=== PATIENT | female | born 1965 | race Caucasian/White ===

== ENCOUNTER 2019-11-28 23:45 | Emergency (ER) | payer OTHER, SELFPAY ==
--- NOTE | ~2019-11-28 | XR_ITS ---
EXAMINATION: XR shoulder LT min 2V, [id number] DATE: 11/29/2019 00:54 INDICATION: Left shoulder and lateral left rib pain post fall TECHNIQUE: 1. AP internally and externally rotated, AP oblique externally rotated, axillary and transscapular Y views of the affected shoulder were obtained. 2. PA view of the chest and 3 views of the left ribs were obtained. COMPARISON: None FINDINGS: Chest and ribs: No rib fractures identified. Mild elevation right hemidiaphragm. No focal airspace opacities, pulmona ry edema, pleural effusion or pneumothorax. Cholecystectomy clips in the right upper quadrant. Additi onal surgical clips in the epigastric region. Left shoulder: Nondisplaced fracture at the greater tuberosity. No other fractures identified. Glenohumeral joint is normal. Minimal left acromioclavicular osteoarthritis. Soft tissues are unremarkable. IMPRESSION: 1. Nondisplaced fracture of the left greater tuberosity. 2. No rib fractures or acute cardiopulmonary disease. Reviewed, dictated and finalized at location A. IMPRESSION: 1. Nondisplaced fracture of the left greater tuberosity. 2. No rib fractures or acute cardiopulmonary disease.
[2019-11-28 23:56] VITALS: BP 138/104; PULSE 78; RESP 16; TEMP 36.9; O2SAT 100
--- NOTE | 2019-11-29 01:55 | ED.FALL ---
HPI - Fall General Chief Complaint: Fall Stated Complaint: FALLS; LAC; RIB & SHOULDER PAIN Time Seen by Provider: 11/28/19 23:56 History of Present Illness HPI Narrative: Patient is a 54-year-old female who presents ER status post fall. Patient is on Coumadin and fell twice tonight. She never struck her head or lost consciousness. The second fall she was walking up onto a pallet when her right foot did not get up all the way and caused her to fall forward jarring her left shoulder. She now has pain at that shoulder and has difficulty with range of motion. No numbness or tingling to the affected extremity. She also reports she hit her rib on that side and has some pain when she takes a deep breath. She has superficial abrasions to her forearms bilaterally that been dressed. Related Data Home Medications Medication Instructions Recorded Confirmed albuterol sulfate 90 mcg/actuation 2 puff INHALATION Q4H PRN gm 05/18/19 09/29/19 aerosol inhaler bupropion HCl 150 mg 24 hr tablet, 150 mg PO .QD tablet 05/18/19 09/29/19 extended release buspirone 15 mg tablet 15 mg PO BID 05/18/19 09/29/19 duloxetine 60 mg capsule,delayed 60 mg PO DAILY 05/18/19 09/29/19 release mometasone-formoterol HFA 200 2 puff INHALATION BID 05/18/19 09/29/19 mcg-5 mcg/actuation aerosol inhaler ranitidine HCl 150 mg capsule 150 mg PO BID cap 05/18/19 09/29/19 warfarin 3 mg tablet 3 mg PO DAILY 05/18/19 09/29/19 warfarin 4 mg tablet 4 mg PO DAILY 05/18/19 09/29/19 cholecalciferol (vitamin D3) 1,250 1,250 mcg PO WEEKLY 09/29/19 09/29/19 mcg (50,000 unit) capsule Allergies Allergy/AdvReac Type Severity Reaction Status Date / Time rituximab Allergy Mild unknown Verified 11/29/19 00:01 cefuroxime Allergy Unknown unknown Verified 11/29/19 00:01 cephalexin Allergy Unknown unknown Verified 11/29/19 00:01 Sulfa (Sulfonamide Allergy Unknown unknown Verified 11/29/19 00:01 Antibiotics) Review of Systems Cardiovascular: Cardiovascular: Reports chest pain Comments: pain with deep breath Respiratory: Respiratory: Denies cough and Denies dyspnea Musculoskeletal: Musculoskeletal: Reports arthralgias and Denies joint swelling Integumentary/Breasts: Comments: abrasions PMFSH Past Medical History Medical History (Updated 11/29/19 @ 02:03 by Art Mobley MD) Anxiety disorder due to multiple medical problems Benign essential hypertension Chronic GERD Hypothyroidism (acquired) Irritable bowel syndrome with constipation and diarrhea Migraine, unspecified, not intractable, without status migrainosus Protein C deficiency Skin tag Trigger finger of right hand Surgical History Surgical History (Updated 11/29/19 @ 01:59 by Art Mobley MD) No pertinent past surgical history Family History Family History (Updated 09/29/18 @ 11:02 by DOCTOR UNKNOWN) Mother Diabetes mellitus, Onset Age: 40 Hypertension, Onset Age: 40 Family history of cardiovascular disease, Onset Age: 40 Acute myocardial infarction, Onset Age: 40 Family history of malignant neoplasm, Onset Age: 40 Grandparent Diabetes mellitus, Onset Age: 73 Hypertension, Onset Age: 73 Family history of cardiovascular disease, Onset Age: 72 Acute myocardial infarction, Onset Age: 72 Social History Social History Smoking status: Former smoker Smoking end date: 06/22/99 Alcohol intake: never Exam Narrative: Exam Narrative: GENERAL: Well-appearing, well-nourished, and in no acute distress. HEAD: Normocephalic, atraumatic. ENT: Mucous membranes moist. CHEST: Clear to auscultation. No respiratory distress. TTP left lateral chest wall. HEART: Regular rate and rhythm. Normal peripheral pulses. EXTREMITIES: Pain with attempts of range of motion at the left shoulder with pain with palpation over the anterior shoulder. No swelling or bruising. Clavicle nontender. NEURO: No focal deficits. Alert and oriented x3. PSYCH: Rafaela
[2019-11-29 02:15] VITALS: BP 135/98; PULSE 75; RESP 16; O2SAT 100
--- NOTE | 2019-11-29 08:04 | PC.NURSE ---
[id number] [phone], NO ANSWER LEFT MESSAGE TO RETURN CALL
--- NOTE | 2019-11-29 08:36 | PC.NURSE ---
[id number] PT RETURNED CALL, THIS MASSAGE THERAPIST INFORMED PT OF NEED TO WEAR SLING AND FOLLOW UP WITH ORTHOPEDICS. PT STATES SHE HAS HER OWN ORTHOPEDIC MD IN [facility] AND SHE WOULD FOLLOW UP WITH THEM. PT DECLINED NAME AND NUMBER FOR DR MONTALVO. INFORMED TO CONTINUE TO WEAR SLING UNTIL SHE FOLLOWS UP AND TO CONTACT RADIOLOGY FOR DISC TO TAKE TO HER ORTHOPEDIC MD.
== END 2019-11-29 02:15 | disposition home or self-care (01) ==
PROVIDERS: Emergency Provider Emergency Medicine; PCP Family Medicine
DX: S42.255A Nondisplaced fracture of greater tuberosity of left humerus, initial encounter for closed fracture (principal); F41.9 Anxiety disorder, unspecified; I10 Essential (primary) hypertension; K21.9 Gastro-esophageal reflux disease without esophagitis; E03.9 Hypothyroidism, unspecified; K58.2 Mixed irritable bowel syndrome; D68.59 Other primary thrombophilia; Z79.01 Long term (current) use of anticoagulants; Z87.891 Personal history of nicotine dependence; W01.0XXA Fall on same level from slipping, tripping and stumbling without subsequent striking against object, initial encounter
CPT/HCPCS: 71101; 73030; 99284; A9270